=== PATIENT | male | born 1950 | race Caucasian/White ===

== ENCOUNTER 2020-04-29 09:19 | Outpatient (REF) | payer OTHER, SELFPAY ==
[2020-04-29 20:53] LABS: Calculated LDL 124 mg/dL (<100); Cholesterol 190 mg/dL (<200); Glucose 95 mg/dL (74-106); HDL Cholesterol 49 mg/dL (40-60); Triglyceride 85 mg/dL (<150)
== END 2020-04-29 09:39 ==
LOC: NCHCN 09:19
PROVIDERS: PCP Internal Medicine; Visit Provider Nurse Practitioner Family
DX: E78.5 Hyperlipidemia, unspecified (principal)
CPT/HCPCS: 80061; 82947

== ENCOUNTER 2021-06-03 10:21 | Outpatient (REF) | payer MEDICARE, SELFPAY ==
[2021-06-03 20:27] LABS: Hemoglobin A1C 5.4 % (<5.7)
[2021-06-03 20:33] LABS: ALT 35 U/L (16-63); AST 17 U/L (15-37); Alkaline Phosphatase 70 U/L (46-116); Anion Gap 8.3 mmol/L (3-11); BUN 17 mg/dL (7-18); Bilirubin, Total 0.6 mg/dL (0.2-1.0); CO2 26.7 mmol/L (21.0-32.0); Calcium 8.5 mg/dL (8.5-10.1); Calculated LDL 124 mg/dL (<100); Chloride 106 mmol/L (98-107); Cholesterol 194 mg/dL (<200); Glucose 96 mg/dL (74-106); HDL Cholesterol 47 mg/dL (40-60); Potassium 4.1 mmol/L (3.5-5.1); Sodium 141 mmol/L (136-145); Total Protein 6.9 g/dL (6.4-8.2); Triglyceride 116 mg/dL (<150)
== END 2021-06-03 10:22 | disposition home or self-care (01) ==
LOC: NCHCN 10:21
PROVIDERS: PCP Internal Medicine; Visit Provider Nurse Practitioner Family
DX: E78.5 Hyperlipidemia, unspecified (principal); Z68.34 Body mass index [BMI] 34.0-34.9, adult
CPT/HCPCS: 80053; 80061; 83036

== ENCOUNTER 2021-07-01 10:16 | Outpatient (CLI) | payer MEDICARE, SELFPAY ==
--- NOTE | 2021-07-01 10:05 | DI.RAD_ITS ---
Exam(s) XR SHOULDER RT COMPLETE 2+V EXAM: XR SHOULDER RT COMPLETE 2+V CLINICAL HISTORY: right shoulder pain TECHNIQUE: COMPARISON: No exams were available for comparison FINDINGS: Two views were obtained. There is mild narrowing of the cartilaginous joint space of glenohumeral herminio int. There are prominent marginal osteophytes of the glenoid. There are prominent osteophytes at th e acromioclavicular joint and on the inferior aspect of the acromion. Humeral head appears essential ly intact as visualized. IMPRESSION: Hypertrophic degenerative changes of AC joint and glenohumeral joint as described above. Inferior ac romial spurs are noted. RADIATION DOSE DELIVERED: Total DLP
== END 2021-07-01 10:17 | disposition home or self-care (01) ==
LOC: DIORS 10:16
PROVIDERS: PCP Internal Medicine; Referring Provider Internal Medicine; Visit Provider Student in an Organized Health Care Education/Training Program
DX: M25.511 Pain in right shoulder (principal); M19.011 Primary osteoarthritis, right shoulder; M75.51 Bursitis of right shoulder
CPT/HCPCS: 20610; 99204; 73030; J1030

== ENCOUNTER → 2021-08-19 09:10 | Outpatient (BNVA) | payer MEDICARE, SELFPAY | PROVIDERS: PCP Internal Medicine; Referring Provider Internal Medicine; Visit Provider Student in an Organized Health Care Education/Training Program | DX: M75.51 Bursitis of right shoulder (principal); M19.011 Primary osteoarthritis, right shoulder; Z98.890 Other specified postprocedural states | CPT/HCPCS: 99213 ==

== ENCOUNTER → 2021-10-08 07:50 | Outpatient (BNVA) | payer MEDICARE, SELFPAY | PROVIDERS: PCP Internal Medicine; Referring Provider Internal Medicine; Visit Provider Student in an Organized Health Care Education/Training Program | DX: M19.011 Primary osteoarthritis, right shoulder (principal); M75.51 Bursitis of right shoulder; M75.101 Unspecified rotator cuff tear or rupture of right shoulder, not specified as traumatic | CPT/HCPCS: 99213 ==

== ENCOUNTER 2021-11-13 01:46 | Outpatient (CLI) | payer MEDICARE, SELFPAY ==
--- NOTE | 2021-11-13 08:00 | DI.RAD_ITS ---
Exam(s) RF JOINT INJECTION FLUORO GUID EXAM: RF JOINT INJECTION FLUORO GUID CLINICAL HISTORY: R SHOULDER PAIN,primary oa,m19.011,m75.51,fluoro guided injection TECHNIQUE: 2D and realtime digital imaging was performed. COMPARISON: No exams were available for comparison FINDINGS: Fluoroscopy was utilized by Dr. Matos during right shoulder injection. Hard copy shows intra-xena cular injection. IMPRESSION: RADIATION DOSE DELIVERED: mariya Oquendo= 2.55 mGy Total DLP Carlo
--- NOTE | 2021-11-13 13:51 | W.PROCNOTE ---
Procedure Note Date of procedure: 11/13/21 Procedure: Right Shoulder Injection Surgeon/Proceduralist/Physician: Keyur Matos Procedure Diagnosis: Right Glenohumeral Arthritis Procedure Indications: Casey has had persistent pain of the RIGHT shoulder. Noninvasive measures have been tried. To serve as both diagnostic and therapeutic, an injection under fluoroscopy was recommended. Dr. Groves asked me to provide this injection. I had discussed the risks of the procedure and the patient elected to proceed. Procedure Description: Casey was greeted in the flouroscopy room. The correct side was identified and the consent was reviewed with the patient and signed. The patient was then placed in the supine position on the fluoroscopy table. The RIGHT shoulder was then prepped with Chloraprep. The anterior injection starting point was identiifed by bony landmarks and fluoroscopy. The skin and soft tissue in the tract of the injection was anesthetized with 1% Lidocaine. A spinal needle was then inserted deep into the shoulder joint at the level of the recess between the glenoid and superior humeral head. A small amount of Omnipaque solution was injected to confirm intraarticular placement. Once confirmed, the shoulder was injected with 4cc of 0.5% Bupivicaine and 80mg of Depo-Medrol. A bandaid was placed on the injection site. The patient tolerated the procedure well and noted improvement in pre-injection pain.
[2021-11-13] MEDS: Omnipaque 300 MG/ML 10 ML BTL IJ (13:56)
[2021-11-13] MEDS: Bupivacaine 0.5% Pres-Free 10 ML VIAL 5 ML IJ (13:57)
[2021-11-13] MEDS: methylPREDNISolone ACETATE 80 MG/ML VIAL IM (13:58)
== END 2021-11-13 02:06 ==
PROVIDERS: PCP Internal Medicine; Visit Provider Student in an Organized Health Care Education/Training Program
DX: M19.011 Primary osteoarthritis, right shoulder (principal); M75.51 Bursitis of right shoulder; M25.511 Pain in right shoulder
CPT/HCPCS: 20610; 77002; J1040

== ENCOUNTER → 2021-12-31 08:45 | Outpatient (BNVA) | payer MEDICARE, SELFPAY | PROVIDERS: PCP Internal Medicine; Referring Provider Internal Medicine; Visit Provider Student in an Organized Health Care Education/Training Program | DX: M75.101 Unspecified rotator cuff tear or rupture of right shoulder, not specified as traumatic (principal); M19.011 Primary osteoarthritis, right shoulder; M75.51 Bursitis of right shoulder | CPT/HCPCS: 99213 ==

== ENCOUNTER → 2022-04-30 03:04 | Outpatient (CLI) | payer MEDICARE, SELFPAY ==
--- NOTE | 2022-04-30 13:12 | DI.RAD_ITS ---
Exam(s) RF JOINT INJECTION FLUORO GUID EXAM: RF JOINT INJECTION FLUORO GUID CLINICAL HISTORY: RIGHT SHOULDER, OA, BURSITIS, RTC TEAR, M19.011, M75.51, M75.101 TECHNIQUE: 2D and realtime digital imaging was performed. COMPARISON: No exams were available for comparison FINDINGS: Fluoroscopy was utilized by Dr. Groves during right shoulder injection. Hard copy shows needle placem ent over the right shoulder joint. IMPRESSION: RADIATION DOSE DELIVERED: mariya Oquendo= 0.168 mGy Total DLP
[2022-04-30] MEDS: Bupivacaine 0.5% Pres-Free 10 ML VIAL 5 ML IJ (15:18)
[2022-04-30] MEDS: Omnipaque 300 MG/ML 10 ML BTL IJ (15:19)
--- NOTE | 2022-04-30 15:19 | W.PROCNOTE ---
Date of service: 04/30/22 Time of Service: 13:20 Procedure Note Date of procedure: 04/30/22 Procedure: Right Shoulder Injection Surgeon/Proceduralist/Physician: Keyur Matos Procedure Diagnosis: Right Shoulder Arthritis Procedure Indications: Casey has had persistent pain of the RIGHT shoulder. Noninvasive measures have been tried. To serve as both diagnostic and therapeutic, an injection under fluoroscopy was recommended. I had discussed the risks of the procedure and the patient elected to proceed. Procedure Description: Casey was greeted in the flouroscopy room. The correct side was identified and the consent was reviewed with the patient and signed. The patient was then placed in the supine position on the fluoroscopy table. The RIGHT shoulder was then prepped with Chloraprep. The anterior injection starting point was identiifed by bony landmarks and fluoroscopy. The skin and soft tissue in the tract of the injection was anesthetized with 1% Lidocaine. A spinal needle was then inserted deep into the shoulder joint at the level of the recess between the glenoid and superior humeral head. A small amount of Omnipaque solution was injected to confirm intraarticular placement. Once confirmed, the shoulder was injected with 5cc of 0.5% Bupivicaine and 80mg of Depo-Medrol. A bandaid was placed on the injection site. The patient tolerated the procedure well and noted improvement in pre-injection pain.
[2022-04-30] MEDS: methylPREDNISolone ACETATE 80 MG/ML VIAL IM (15:20)
== END ==
PROVIDERS: PCP Internal Medicine; Visit Provider Student in an Organized Health Care Education/Training Program
DX: M19.011 Primary osteoarthritis, right shoulder (principal); M75.101 Unspecified rotator cuff tear or rupture of right shoulder, not specified as traumatic; M75.51 Bursitis of right shoulder
CPT/HCPCS: 20610; 77002; J1040

== ENCOUNTER 2022-06-10 19:14 | Outpatient (REF) | payer MEDICARE, SELFPAY ==
[2022-06-10 21:37] LABS: ALT 43 U/L (16-63); AST 22 U/L (15-37); Albumin 4.1 g/dL (3.4-5.0); Alkaline Phosphatase 80 U/L (46-116); Anion Gap 7.3 mmol/L (3-11); BUN 19 mg/dL (7-18); Bilirubin, Total 0.5 mg/dL (0.2-1.0); CO2 28.7 mmol/L (21.0-32.0); CREATININE 1.2 mg/dL (0.70-1.30); Calcium 8.9 mg/dL (8.5-10.1); Calculated LDL 125 mg/dL (<100); Chloride 104 mmol/L (98-107); Cholesterol 195 mg/dL (<200); Estimated GFR 64.25 (mL/min/1.73m2); Glucose 98 mg/dL (74-106); HDL Cholesterol 50 mg/dL (40-60); Potassium 4.3 mmol/L (3.5-5.1); Sodium 140 mmol/L (136-145); Total Protein 7.5 g/dL (6.4-8.2); Triglyceride 104 mg/dL (<150)
[2022-06-10 22:11] LABS: Hemoglobin A1C 5.4 % (<5.7)
[2022-06-11 19:00] LABS: PSA, Screening 0.8 ng/mL (<=6.5)
== END 2022-06-10 19:15 | disposition home or self-care (01) ==
LOC: NCHCN 19:14
PROVIDERS: PCP Internal Medicine; Visit Provider Nurse Practitioner Family
DX: E78.5 Hyperlipidemia, unspecified (principal); E66.8 Other obesity; Z68.34 Body mass index [BMI] 34.0-34.9, adult; Z12.5 Encounter for screening for malignant neoplasm of prostate; R79.89 Other specified abnormal findings of blood chemistry
CPT/HCPCS: 80053; 80061; 84153; 83036

== ENCOUNTER 2022-11-26 01:12 | Outpatient (CLI) | payer MEDICARE, SELFPAY ==
--- NOTE | 2022-11-26 07:45 | DI.RAD_ITS ---
Exam(s) RF JOINT INJECTION FLUORO GUID EXAM: RF JOINT INJECTION FLUORO GUID CLINICAL HISTORY: RIGHT SHOULDER TEAR,oa rt shoulder, m19.011,m75.51,chronic bursitis. TECHNIQUE: 2D and realtime digital imaging was performed. COMPARISON: No exams were available for comparison FINDINGS: Fluoroscopy was provided for Dr. Matos for guidance with performing a right shoulder injection. Please see procedure note for details. Fluoro time: 4seconds RADIATION DOSE DELIVERED: mariya Oquendo=0.19 mGy
[2022-11-26] MEDS: Bupivacaine 0.5% Pres-Free 10 ML VIAL 5 ML IJ (13:32)
[2022-11-26] MEDS: methylPREDNISolone ACETATE 80 MG/ML VIAL IM (13:32)
--- NOTE | 2022-11-26 13:57 | W.PROCNOTE ---
Date of service: 11/26/22 Time of Service: 13:10 Procedure Note Date of procedure: 11/26/22 Procedure: Right Shoulder Injection Surgeon/Proceduralist/Physician: Keyur Matos Procedure Diagnosis: Right Shoulder Arthritis Procedure Indications: Casey has had persistent pain of the RIGHT shoulder. Noninvasive measures have been tried. To serve as both diagnostic and therapeutic, an injection under fluoroscopy was recommended. I had discussed the risks of the procedure and the patient elected to proceed. Procedure Description: Casey was greeted in the flouroscopy room. The correct side was identified and the consent was reviewed with the patient and signed. The patient was then placed in the supine position on the fluoroscopy table. The RIGHT shoulder was then prepped with Chloraprep. The anterior injection starting point was identiifed by bony landmarks and fluoroscopy. The skin and soft tissue in the tract of the injection was anesthetized with 1% Lidocaine. A spinal needle was then inserted deep into the shoulder joint at the level of the recess between the glenoid and superior humeral head. A small amount of Omnipaque solution was injected to confirm intraarticular placement. Once confirmed, the shoulder was injected with 5cc of 0.5% Bupivicaine and 80mg of Depo-Medrol. A bandaid was placed on the injection site. The patient tolerated the procedure well and noted improvement in pre-injection pain.
== END 2022-11-26 01:32 ==
LOC: DI 01:13
PROVIDERS: PCP Internal Medicine; Visit Provider Student in an Organized Health Care Education/Training Program
DX: M19.011 Primary osteoarthritis, right shoulder (principal); M25.511 Pain in right shoulder; M75.51 Bursitis of right shoulder
CPT/HCPCS: 20610; 77002; J1040

== ENCOUNTER → 2023-03-11 13:47 | Outpatient (BNVA) | payer MEDICARE, SELFPAY | PROVIDERS: PCP Internal Medicine; Referring Provider Internal Medicine; Visit Provider Student in an Organized Health Care Education/Training Program | DX: M19.011 Primary osteoarthritis, right shoulder (principal) | CPT/HCPCS: 20611; J1040 ==

== ENCOUNTER 2023-05-11 09:21 | Outpatient (CLI) | payer MEDICARE, SELFPAY ==
--- NOTE | 2023-05-11 09:15 | DI.RAD_ITS ---
Exam(s) XR SHOULDER RT COMPLETE 2+V EXAM: XR SHOULDER RT COMPLETE 2+V CLINICAL HISTORY: RIGHT SHOULDER PAIN. TECHNIQUE: 2D digital imaging was performed. Three views. COMPARISON: CR XR SHOULDER RT COMPLETE 2+V from 07/01/2021 FINDINGS: BONES: No acute fracture is present. No bony destructive lesion is seen. Prominent spurring at the t ip of the acromion. JOINTS: No dislocation present. Spurring at the AC joint. Glenohumeral joint space is maintained. Spurring at the inferior glenoid. SOFT TISSUE: Normal. IMPRESSION: Prominent spur at the undersurface of the acromion. Degenerative changes of AC joint and glenohumera l joint. DATA REPOSITORY: RADIATION DOSE DELIVERED:
== END 2023-05-11 09:22 | disposition home or self-care (01) ==
LOC: DIORS 09:21
PROVIDERS: PCP Internal Medicine; Referring Provider Internal Medicine; Visit Provider Student in an Organized Health Care Education/Training Program
DX: M19.011 Primary osteoarthritis, right shoulder (principal); M75.101 Unspecified rotator cuff tear or rupture of right shoulder, not specified as traumatic; M75.51 Bursitis of right shoulder
CPT/HCPCS: 99213; 73030

== ENCOUNTER → 2023-06-25 00:15 | Outpatient (CLI) | payer MEDICARE, SELFPAY ==
--- NOTE | 2023-06-25 07:45 | DI.CT_ITS ---
Exam(s) CT UPPER EXTREMITY RT WO EXAM: CT UPPER EXTREMITY RT WO CLINICAL HISTORY: SURGICAL PLANNING,primary oa,rt rotator cuff tear,m75.101,m19.011. TECHNIQUE: Imaging Protocol: Axial computed tomography images with coronal and sagittal reformatted images were created and reviewed. COMPARISON: CR XR SHOULDER RT COMPLETE 2+V from 05/11/2023 FINDINGS: AC joint: Inferior spurring. Prominent spurring at the undersurface of the acromion. Moderate narrowing of the glenohumeral joint. Moderate spurring at the rim of the glenoid. Humeral head appears normally positioned. No muscular atrophy. No gross evidence of full-thickness supraspinatus tendon tear. IMPRESSION: Moderate degenerative changes. RADIATION DOSE DELIVERED: Total DLP Total DLP DATA REPOSITORY: All CT scans at this facility are submitted to the National Radiology Data Registry (NRDR) Dose Index Registry (DIR) with the [employer] ([employer]). RADIATION OPTIMIZATION: All CT scans at this facility use at least one of these dose optimization te chniques: automated exposure control; mA and/or kV adjustment per patient size (includes targeted exa ms where dose is matched to clinical indication); or iterative reconstruction.
== END ==
PROVIDERS: PCP Internal Medicine; Visit Provider Student in an Organized Health Care Education/Training Program
DX: M19.011 Primary osteoarthritis, right shoulder (principal)
CPT/HCPCS: 73200

== ENCOUNTER → 2023-07-13 10:17 | Outpatient (BNVA) | payer MEDICARE, SELFPAY | PROVIDERS: PCP Internal Medicine; Referring Provider Internal Medicine; Visit Provider Student in an Organized Health Care Education/Training Program | DX: M75.101 Unspecified rotator cuff tear or rupture of right shoulder, not specified as traumatic (principal); M19.011 Primary osteoarthritis, right shoulder; M75.21 Bicipital tendinitis, right shoulder | CPT/HCPCS: 99214 ==

== ENCOUNTER 2023-09-30 06:03 | Day surgery (SDC) | payer MEDICARE, SELFPAY ==
[2023-09-30] VITALS (16 sets, daily range): BP systolic 93–162; BP diastolic 58–95; PULSE 62–74; RESP 11–22; TEMP 36.1–37.1; O2SAT 93–98; BMI 33.1
--- NOTE | 2023-09-30 06:26 | W.ANESPRE ---
General Info Date of Service Date Performed: 09/30/23 Height: 5 ft 8 in Weight: 98.9 kg Body Mass Index (BMI): 33.1 Surgical Procedure: Operation Date: 09/30/23 07:40 Proposed Procedure Side Surgeon p Shoulder Reverse Total Arthroplasty, Biceps Tenodesis Right Adal Groves MD Meds Allergies and Home Medications Allergies Allergy/AdvReac Type Severity Reaction Status Date / Time simvastatin Allergy Verified 09/30/23 06:10 doxepin AdvReac Intermediate Verified 09/30/23 06:10 Home Medication Medication Instructions Recorded sildenafil 100 mg tablet (Viagra) 100 mg PO DAILY PRN 07/01/21 aspirin 81 mg tablet,delayed 81 mg PO DAILY Prevent blood clot 09/30/23 release 14 days #14 tabs naproxen 250 mg tablet 250 - 500 mg (1 - 2 x 250 mg) PO 09/30/23 BID PRN Moderate pain #40 tabs oxycodone 5 mg tablet 5 - 10 mg (1 - 2 x 5 mg) PO Q4H 09/30/23 PRN Moderate to severe pain #18 tabs Current Visit Medications: Current Medications Generic Name Dose Route Start Last Admin Trade Name Freq PRN Reason Stop Dose Admin Ringer's Solution 1,000 mls @ 30 mls/hr 09/30/23 06:00 IV 10/29/23 23:59 INFUSION PATRICK Tranexamic Acid 1,000 mg/ 60 mls @ 360 mls/hr 09/30/23 06:00 Sodium Chloride IVPB 09/30/23 16:00 PREOP PATRICK Cefazolin Sodium/Dextrose 2 gm in 50 mls @ 100 mls/hr 09/30/23 06:00 Ancef Duplex IVPB 09/30/23 16:00 PREOP PATRICK IV Miscellaneous Supplies 1 each 09/30/23 06:00 Iv Access IV 10/29/23 23:59 DIRECTED PATRICK Sodium Chloride 0 ml 09/30/23 06:00 Normal Saline Flush 10 Ml Syr IV 10/29/23 23:59 PRN PRN Sodium Chloride 0 ml 09/30/23 06:00 Normal Saline 10 Ml Vial IJ 10/29/23 23:59 DIRECTED PRN Sterile Water 0 ml 09/30/23 06:00 Water,Injection,Sterile 10 Ml Vial IJ 10/29/23 23:59 DIRECTED PRN PFSH Active Problems Active Problems: Problem Status Onset Code Tendonitis of long head of biceps brachii of right shoulder M75.21 Rotator cuff tear, right M75.101 Primary osteoarthritis, right shoulder M19.011 Medical History Medical History Chronic bursitis of right shoulder Surgical History Surgical History Hx of tonsillectomy Tobacco Smoking/Tobacco Use Status: Never Alcohol Alcohol Intake: current Alcohol intake frequency: a few times a week Alcohol type: beer Substance Use Substance use: Never Substance use type: does not use Vital Signs and Lab Results Vital Signs Most Recent Vital Signs in EMR: Most Recent Vital Signs Temp Pulse Resp BP Pulse Ox 36.5 C 63 16 148/84 H 98 09/30/23 06:12 09/30/23 06:12 09/30/23 06:12 09/30/23 06:12 09/30/23 06:12 Lab Results Blood Type / Crossmatch: No Data to Display Complete Blood Count: No Data to Display Complete Metabolic Panel: No Data to Display Liver Function Panel: No Data to Display Coagulation Panel: No Data to Display Cardiac Panel: No Data to Display Arterial Blood Gas: No Data to Display Venous Blood Gas: No Data to Display Pancreas Panel: No Data to Display Thyroid Panel: No Data to Display Infectious Disease: No Data to Display Blood Cultures: No Data to Display Toxicology Panel: No Data to Display Anesthesia Assessment and Plan Anesthesia History Personal History: No History of Anesthesia Complications Family History: No Family History of Anesthesia Complications Exercise Tolerance Exercise Tolerance: Metabolic Equivalents>4 Pertinent Negatives Pertinent Negatives: No Symptoms of GERD, No Major Cardiovascular Symptoms or Complaints, No Major Pulmonary Symptoms or Complaints and No History of CVA/TIA Cardiac & Pulmonary Exam Cardiac Exam: Normal S1/S2 Heart Sounds Pulmonary Exam: Clear Bilateral Breath Sounds Implantable Cardiac Device Does patient have a Pacemaker or an ICD?: No Airway Exam Known Difficult Airway: No Mallampati Class: 3 Mouth Opening: Normal (> 3cm) Thyromental Distance: Greater than 3 cm Neck Range of Motion: Full ROM Neck Circumference: Normal Teeth Condition: Normal Dentition ASA Classification ASA Score: ASA 2 Emergency Case?: No NPO Status NPO Status: NPO Clears >2 hours, Solids >8 hours Anesthesia Plan Resuscitation Status: Full Code Anesthesia Technique: General Anesthesia Airway Planned: Endotracheal Tube Monitors Used: Standard Monitors and SedLine
[2023-09-30] MEDS: Lactated Ringers 1,000 ML 30 ML IV (06:40)
--- NOTE | 2023-09-30 07:11 | W.PM.DSUDISC ---
Date of service: 09/30/23 Time of Service: 14:00 Discharge Plan Disposition Patient Disposition: Home Condition: Stable Discharge Details Attending Provider: Adal Groves Primary Care Provider: Van Palumbo Home Meds and New Rx's Prescriptions: New aspirin 81 mg tablet,delayed release (DR/EC) 81 mg PO DAILY 14 Days Qty: 14 0RF naproxen 250 mg tablet 250 - 500 mg PO BID PRN (Reason: Moderate pain) Qty: 40 0RF oxycodone 5 mg tablet 5 - 10 mg PO Q4H PRN (Reason: Moderate to severe pain) Qty: 18 0RF Continued sildenafil [Viagra] 100 mg tablet 100 mg PO DAILY PRN Rx Instructions: administer 30 minutes to 4 hours before activity Discharge Instructions Additional Instructions: Surgery: Right reverse total shoulder arthroplasty with biceps tenodesis Activity: Do not lift anything heavier than a coffee. You should keep your arm at your side in a neutral position most of the time except for gentle range of motion exercises, physical therapy, and light essential activities. You should use the sling whenever you are out of the house. You may have to adjust the abduction pillow or remove it for comfort. At home it is best to remove the sling and rest the arm on a pillow at your side or support the operative side with your other hand. A physical therapy prescription will be sent electronically to start in about 3 weeks. MODIFIED Reverse TSA Protocol: Immediate AROM OK. Prescriptions: Aspirin 81 mg take 1 daily to prevent a blood clot for 2 weeks Naproxen 250 mg take 1-2 every 12 hours with a meal as needed for moderate pain Oxycodone 5 mg take 1-2 every 4-6 hours as needed for severe pain You may use [id number] Tylenol (acetaminophen) as needed for mild pain. These pain medications may be taken all at once or in different combinations as needed. Also, recommend Colace (docusate) as a stool softener as surgery and pain medicine cause constipation. You may try [id number] diphenhydramine (Benadryl) 25-50 mg nightly as a sleep aid Dressings: Leave dressing in place until follow-up. Keep clean and dry at all times. No showers please. Follow-up: 10-[address] Groves You may take off the leg compression stockings this evening at home. You may also leave them on a few days longer if you have a history of leg swelling or edema. Please call the office during business hours with any questions or concerns. Let us know right away if you develop any redness, drainage, fevers, chest pain, or trouble breathing. Do not drink alcohol or drive for at least 24 hours after anesthesia. Stand Alone Forms: Anesthesia Discharge Inst., Anes.Nerve Block Instructions, Garcia Noyola (DSU) Discharge Orders Discharge Orders: Discharge Order (Routine); Ordered 09/30/23 Ordered By: Lan Posey Discharge Data Discharge Date/Time-TO BE ENTERED AT DEPARTURE: 09/30/23 15:45 DS: Diagnosis Discharge Diagnosis (1) Primary osteoarthritis, right shoulder: Status: Acute
[2023-09-30] MEDS: Celecoxib 200 MG CAP 400 MG PO (07:14)
[2023-09-30] MEDS: Acetaminophen 500 MG TAB 1000 MG PO (07:14)
[2023-09-30] MEDS: Gabapentin 300 MG CAP PO (07:14)
--- NOTE | 2023-09-30 07:15 | ROE_ITS ---
Date of service: 09/30/23 Time of Service: 07:30 Operative Note Operative Note DATE OF PROCEDURE: 09/30/23 PRE-OP DIAGNOSIS: Right: 1. Rotator cuff arthropathy 2. Long head of the biceps tendinopathy POST-OP DIAGNOSIS: same PROCEDURE: Right: 1. Reverse total shoulder arthroplasty, CPT # 91884 2. Open biceps tenodesis, CPT # 60329 The enrichment assistant was medically required as this procedure involves retraction, protection of neurovascular structures, and manipulation of multiple instruments and implants at the same time, which cannot be done without a skilled enrichment assistant. SURGEON: Adal Groves TOWER EQUIPMENT INSTALLER: Lan Posey ANESTHESIA TYPE: Local By Surgeon, General LMA/ETT and Primary Nerve Block Refer to Anesthesia Record ESTIMATED BLOOD LOSS: 50 COMPLICATIONS: None Patient was transported to: PACU Implants: [employer] modular glenoid system baseplate 24 mm +2 Lat [employer] modular glenoid system central post 25 mm [employer] modular glenoid system peripheral locking screws 28 mm inferior, 32 mm superior, 16 mm posterior, 16 mm anterior [employer] modular glenoid system glenosphere 42 +4 mm lateralized [employer] humeral stem 135 degrees size 8 [employer] suture cup size 42 posterior offset [employer] humeral insert size 42 +3 mm Indications: Please see complete medical record for details. Findings: Significant long head biceps tenosynovitis, moderate anterior capsular contracture, high?grade tearing superior rotator cuff, and glenohumeral cartilage loss. Procedure Description: In the operating room, general anesthesia was induced. The patient was positioned beachchair on the operating room table. All bony prominences were well-padded. Preoperative antibiotics were administered. The shoulder was prepped and draped in the usual sterile fashion for shoulder arthroplasty. The correct patient, procedure, and side of the procedure were all verified prior to incision. The deltopectoral approach was preinjected with local anesthetic containing epinephrine and taken to the anterior shoulder. Care was taken to bluntly dissect the interval between the deltoid and pectoralis major muscles and to identify the cephalic vein within its fat stripe. The the vein was mobilized laterally. Subdeltoid space and conjoined tendon were freed of adhesions. The long head of the biceps tendon was identified just lateral to the lesser tuberosity. The uppermost margin of the pectoralis major tendon was released from the proximal humerus. The long head of the biceps tendon was tenodesed in situ using SutureTape in a [id number] fashion securing it superior margin the pectoralis major tendon. The biceps tendon was amputated and followed proximally to identify the rotator interval. A subscapularis peel was done, in order to release and mobilized to full tendon working on bone from superior to inferior. When it became apparent the subscapularis would not mobilize for later repair and was tenotomized through its mid substance. The supraspinatus was debrided as it was significantly thickened and partially torn to about the level of the infraspinatus wrapping around posteriorly. Appropriate coagulation was achieved especially interiorly. The anatomic neck was cut using an oscillating saw with the humeral head bone brought back table in case there was a need for future bone grafting. The proximal humeral protection plate was used to provisionally confirm suture cup and glenosphere size. The proximal humerus was delivered from the wound and maintained in external rotation. Of note the muscular deltoid and pectoralis major limited mobility of the exposure of the proximal humerus and later the glenoid even after adequate releases anteriorly and posteriorly. Reamers were started appropriately posterior to the bicipital groove taking care to maintain in line approach with the humeral canal. Sequential reaming was done from size 5 up to size 9. Next, the broaches were sequentially used to open the proximal humerus starting with a size 5 and going up to size 9 and sunk to the appropriate depth while maintaining approximately 25 degrees retroversion. There was good metaphyseal f it and rotational control of the proximal humerus with this size. The posterior offset guide was used to ream for the suture cup. Attention was then turned to the glenoid and retractors were placed and a circumferential release performed using the long head of the biceps remnant to remove soft tissue about the glenoid rim. Care was taken inferiorly to work on bone only between 5 and 7:00 o'clock and bluntly elevate tissues inferiorly although a large inferior prominence as noted in the CT had to be identified for adequate glenosphere placement. The VIP guide was too large really for the exposure, and anatomy looked better for the regular baseplate and then the eccentric augmented, the guidepin was then placed through the guide with the VIP use to confirm placement and trajectory of the central guidepin. The guidepin was inserted and advanced just through the far cortex ensuring adequate central fixation length. Depth gauge was used to confirm length. The glenosphere sizer was used to confirm positioning and glenosphere size. The backside of the baseplate reamer and underside of glenosphere reamers were then used. There was appropriate eccentric reaming inferiorly. The 25 mm central post drill was used. The baseplate was impacted, but did not fully compressed or have good fixation strength onto the glenoid surface with some interposed cartilage. It was removed this tissue removed, and then impacted again and fully compressed onto the glenoid surface with much better purchase. The locking guide was then used to drill initial inferior screw, nonlocking compression chosen to best secure the baseplate to the glenoid surface and ensure maintenance of inferior tilt and then drill through the locking guide and place appropriately lenghthed superior, anterior, and posterior screws. The inferior screw nonlocking was then replaced with a locking screw. The [id number]-[id number] reamer was used to confirm adequate peripheral reaming. The glenosphere was applied with the fabrication and layout craftsman and then impacted to engage the Castro taper. It was then locked with appropriate countersinking of the setscrew. The glenosphere was inspected and found to have good fit, appropriate positioning, and no soft tissue or bony impingement. Attention was then turned back to rhe humeral trial cup was connected. Trialing was commenced with +3 mm liner. The shoulder was reduced and taken through range of motion with this construct showing excellent stability and appropriate tension on the deltoid and conjoined tension. The trial components were removed from the proximal humerus. The wound was copiously irrigated with normal saline. The the proximal humeral stem and suture cup were assembled and brought over the proximal humerus. A small amount of vancomycin powder was distributed in the proximal humerus. The humeral component and suture cup were impacted into place. It sat at the same location of the trial. The final +3 mm liner was then connected and impacted. The final implants were reduced and range of motion, stability, and tension confirmed to be appropriate. The shoulder was copiously irrigated with Irrisept and normal saline. Vancomycin powder was distributed deeply about the shoulder and through subcutaneous tissues. T the deltopectoral interval was reapproximated using 2-0 Monocryl buried in the cephalic vein. Subcutaneous tissue was irrigated then closed using 2-0 Monocryl in a buried interrupted fashion. Skin was closed using 3-0 Monocryl in a buried subcuticular fashion. Skin glue was applied to the incision. A silver impregnated bandage was placed over the incision. The extremity was placed into a shoulder immobilizer.
[2023-09-30] MEDS: ceFAZolin 2 GM/50 ML BAG IVPB (07:34)
[2023-09-30] MEDS: Bupivacaine 0.25% Pres-Free 30 ML VIAL (08:37)
[2023-09-30] MEDS: EPINEPHrine 1 MG/ML AMP pres-free (08:38)
--- NOTE | 2023-09-30 08:44 | W.ANESNERVE ---
Nerve Block Single Injection Procedure Date and Time Date Performed: 09/30/23 Procedure Start: 07:17 Location Where Procedure Performed Procedure Location: Day Surgery Unit Reason Performed: Postoperative Analgesia Requesting Provider: Adal Groves Timeout Performed Timeout Performed: Yes Monitoring Used ECG, Blood Pressure and SpO2 Sterility Sterility: Hand Hygiene, Surgical Cap, Surgical Mask, Sterile Gloves and Chlorhexidine Sedation Given During Procedure Sedation Given (Indicate Dose Given): Versed IV Dose:: 2mg Patient Mental Status Patient Mental Status: Sedate with meaningful communication Nerve Block 1st Nerve Block: Laterality: Right Block Type: Interscalene Ultrasound Image Saved?: Yes Needle / Catheter Used: 100mm SonoPlex II Local Anesthetic Bolus (Indicate Dose Given): Lidocaine used for local infiltration of skin, Injected in 3-5ml increments after negative blood aspiration, Bupivacaine 0.5% Dose:: 10mL and Exparel Dose:: 10 ml Additives (Indicate Dose Given): None Ultrasound: Sterile probe cover and gel used Nerve Stimulator: Supplement to Ultrasound use Paresthesia: None Procedure Tolerated: No Complications and Patient tolerated well Procedure Outcome: Successful Performed By: Sylvia Foy Supervised By: Dagmar Valverde
--- NOTE | 2023-09-30 11:00 | DI.RAD_ITS ---
Exam(s) XR SHOULDER RT COMPLETE 2+V EXAM: XR SHOULDER RT COMPLETE 2+V CLINICAL HISTORY: Shoulder Arthritis. TECHNIQUE: 2D digital imaging was performed. COMPARISON: CR XR SHOULDER RT COMPLETE 2+V from 05/11/2023 FINDINGS: Two views. There is satisfactory position and alignment of the components of the newly placed reverse prosthesis . No fracture or loosening evident. IMPRESSION: Satisfactory postop appearance. DATA REPOSITORY: RADIATION DOSE DELIVERED:
[2023-09-30] MEDS: ceFAZolin 1 GM/50 ML BAG IVPB (11:31)
--- NOTE | 2023-09-30 15:37 | W.ANESPOSTOP ---
Postoperative Evaluation Date, Time and Location Date Performed: 09/30/23 Time Performed: 13:20 Patient Location: PACU Vital Signs Most Recent Imported Vital Signs: Most Recent Vital Signs Temp Pulse Resp BP Pulse Ox 36.5 C 64 16 117/72 94 09/30/23 14:13 09/30/23 14:13 09/30/23 14:13 09/30/23 14:13 09/30/23 14:13 Pain Score Most Recent Pain Score: Most Recent Pain Score Pain Level 0 09/30/23 14:13 Assessment Mental Status: Awake (Alert & Oriented to Patient Baseline) Airway and Respiratory Function: Patent airway with normal (patient baseline) respiratory exam Cardiovascular Function: Hemodynamically Stable Hydration Status: Adequately Hydrated Nausea & Vomiting: No Nausea or Vomiting Pain: Pt. Denies Any Pain Peripheral Nerve Block: Regional nerve block not resolved at time of post operative discharge
== END 2023-09-30 15:45 | disposition home or self-care (01) ==
PROVIDERS: PCP Internal Medicine; Visit Provider Student in an Organized Health Care Education/Training Program
PROC: (CPT 23472; principal; 2023-09-30 07:30)
DX: M19.011 Primary osteoarthritis, right shoulder (principal)
CPT/HCPCS: 23472; 23430; C1713; 76942; 73030; C9290; J0171; J0665; J0690; J1100; J2001; J2250; J2371; J2405; J2704; J3370

== ENCOUNTER 2023-10-13 15:37 | Outpatient (CLI) | payer MEDICARE, SELFPAY ==
--- NOTE | 2023-10-13 15:56 | DI.RAD_ITS ---
Exam(s) XR SHOULDER RT COMPLETE 2+V EXAM: XR SHOULDER RT COMPLETE 2+V INDICATION: F/U RIGHT RTSA. COMPARISON: CR XR SHOULDER RT COMPLETE 2+V from 09/30/2023 TECHNIQUE: 2D digital imaging was performed. Two views. FINDINGS: There has been no change in the alignment of the reverse shoulder prosthesis. No abnormal bony lucen cies are seen. There is some residual postsurgical air in the soft tissues. DATA REPOSITORY: RADIATION DOSE DELIVERED:
== END 2023-10-13 15:38 | disposition home or self-care (01) ==
LOC: DIORS 15:37
PROVIDERS: PCP Internal Medicine; Visit Provider Student in an Organized Health Care Education/Training Program
DX: Z96.611 Presence of right artificial shoulder joint (principal); Z47.1 Aftercare following joint replacement surgery
CPT/HCPCS: 73030

== ENCOUNTER → 2023-12-01 13:36 | Outpatient (BNVA) | payer MEDICARE, SELFPAY | PROVIDERS: PCP Nurse Practitioner Family; Visit Provider Student in an Organized Health Care Education/Training Program | DX: Z47.1 Aftercare following joint replacement surgery (principal); Z96.611 Presence of right artificial shoulder joint ==

== ENCOUNTER → 2024-01-26 13:11 | Outpatient (BNVA) | payer MEDICARE, SELFPAY | PROVIDERS: PCP Nurse Practitioner Family; Referring Provider Nurse Practitioner Family; Visit Provider Student in an Organized Health Care Education/Training Program | DX: Z47.1 Aftercare following joint replacement surgery (principal); Z96.611 Presence of right artificial shoulder joint | CPT/HCPCS: 99213 ==

== ENCOUNTER 2024-02-29 11:18 | Outpatient (REF) | payer MEDICARE, SELFPAY ==
[2024-02-29 18:47] LABS: ESR 5 mm/hr (0-20)
[2024-02-29 18:48] LABS: HCT 47.6 % (40.0-50.0); HGB 15.6 g/dL (13.5-17.5); MCH 28.9 pg (27.0-33.0); MCHC 32.8 % (32.0-36.0); MCV 88 fL (80-95); Platelet Count 202 10^3/uL (130-400); RBC 5.39 10^6/uL (4.36-5.78); RDW 13.9 % (11.8-14.1); RDW-SD 44.9 fL; WBC 5.13 10^3/uL (4.4-10.8)
[2024-02-29 19:10] LABS: TSH 1.63 uIU/Ml (0.36-3.74)
[2024-03-02 10:06] LABS: Lyme Ab w Rflx to Lyme Confirm Negative (Negative)
[2024-03-03 21:58] LABS: Anaplasma phagocytophilum Negative (Negative); B. miyamotoi PCR Negative (Negative); Babesia divergens/MO-1 Negative (Negative); Babesia duncani Negative (Negative); Babesia microti Negative (Negative); Ehrlichia chaffeensis Negative (Negative); Ehrlichia ewingii/canis Negative (Negative); Ehrlichia muris eauclairensis Negative (Negative)
== END 2024-02-29 11:19 | disposition home or self-care (01) ==
LOC: NCHCN 11:18
PROVIDERS: PCP Nurse Practitioner Family; Visit Provider Nurse Practitioner Family
DX: R53.83 Other fatigue (principal); M25.50 Pain in unspecified joint; Z11.8 Encounter for screening for other infectious and parasitic diseases
CPT/HCPCS: 85027; 85652; 87798; 84443; 86618

== ENCOUNTER 2024-08-10 08:24 | Outpatient (REF) | payer MEDICARE, SELFPAY ==
[2024-08-10 20:30] LABS: ALT 38 U/L (16-63); AST 22 U/L (15-37); Albumin 3.9 g/dL (3.4-5.0); Alkaline Phosphatase 80 U/L (46-116); BUN 16 mg/dL (7-18); Bilirubin, Total 0.63 mg/dL (0.2-1.0); CREATININE 1.3 mg/dL (0.70-1.30); Calcium 8.8 mg/dL (8.5-10.1); Calculated LDL 123 mg/dL (<100); Chloride 107 mmol/L (98-107); Cholesterol 192 mg/dL (<200); Estimated GFR 57.65 (mL/min/1.73m2); Glucose 97 mg/dL (74-106); HDL Cholesterol 51 mg/dL (40-60); Potassium 4.4 mmol/L (3.5-5.1); Sodium 144 mmol/L (136-145); Total Protein 7.2 g/dL (6.4-8.2); Triglyceride 91 mg/dL (<150)
== END 2024-08-10 08:25 | disposition home or self-care (01) ==
LOC: NCHCN 08:24
PROVIDERS: PCP Nurse Practitioner Family; Visit Provider Nurse Practitioner Family
DX: E78.5 Hyperlipidemia, unspecified (principal)
CPT/HCPCS: 80053; 80061

== ENCOUNTER 2024-10-18 13:00 | Outpatient (CLI) | payer MEDICARE, SELFPAY ==
--- NOTE | 2024-10-18 13:00 | DI.RAD_ITS ---
Exam(s) XR SHOULDER RT COMPLETE 2+V EXAM: XR SHOULDER RT COMPLETE 2+V CLINICAL HISTORY: F/U RIGHT RTSA. TECHNIQUE: 2D digital imaging was performed. Three images were obtained. Axillary, Grashey and Y vi ews were obtained. COMPARISON: CR XR SHOULDER RT COMPLETE 2+V from 10/13/2023 FINDINGS: BONES: There are stable post operative changes of a right reverse total shoulder arthroplasty present . No fracture or dislocation. JOINTS: The orthopedic hardware is in good position. No evidence of hardware loosening. Degenerativ e changes are seen at the acromioclavicular joint. SOFT TISSUE: Normal. IMPRESSION: Stable right reverse total shoulder arthroplasty.. DATA REPOSITORY: RADIATION DOSE DELIVERED:
== END 2024-10-18 13:01 | disposition home or self-care (01) ==
LOC: DIORS 10-19 15:38
PROVIDERS: PCP Nurse Practitioner Family; Referring Provider Nurse Practitioner Family; Visit Provider Physician Assistant
DX: Z47.1 Aftercare following joint replacement surgery (principal); Z96.611 Presence of right artificial shoulder joint
CPT/HCPCS: 99213; 73030

== ENCOUNTER 2025-01-23 10:41 | Outpatient (CLI) | payer MEDICARE, SELFPAY ==
--- NOTE | 2025-01-23 14:35 | DI.RAD_ITS ---
Exam(s) XR KNEE LT 3V AP,LAT,CHARO EXAM: XR KNEE LT 3V AP,LAT,CHARO CLINICAL HISTORY: ACUTE PAIN LT KNEE, M25.562. TECHNIQUE: 2D digital imaging was performed. Three views. COMPARISON: No exams were available for comparison FINDINGS: BONES: No acute fracture is present. No bony destructive lesion is seen. Enthesophyte at quadricep s insertion on patella. Small enthesophyte at tibial tubercle. There is an exostosis at the posteri or aspect of the proximal tibia. JOINTS: The knee is normally aligned. No joint effusion is seen. The joint spaces are maintained. SOFT TISSUE: Venous varicosities. IMPRESSION: No acute abnormality. DATA REPOSITORY: RADIATION DOSE DELIVERED:
== END 2025-01-23 11:01 ==
LOC: DI 10:41
PROVIDERS: PCP Nurse Practitioner Family; Visit Provider Nurse Practitioner Family
DX: M25.562 Pain in left knee (principal)
CPT/HCPCS: 73562

== ENCOUNTER → 2025-02-14 09:26 | Outpatient (BNVA) | payer MEDICARE, SELFPAY | PROVIDERS: PCP Nurse Practitioner Family; Referring Provider Nurse Practitioner Family; Visit Provider Student in an Organized Health Care Education/Training Program | DX: S86.812A Strain of other muscle(s) and tendon(s) at lower leg level, left leg, initial encounter (principal); X58.XXXA Exposure to other specified factors, initial encounter | CPT/HCPCS: 99213 ==

== ENCOUNTER 2025-07-24 10:26 | Outpatient (REF) | payer MEDICARE, SELFPAY ==
[2025-07-24 18:51] LABS: HCT 48.3 % (40.0-50.0); HGB 15.9 g/dL (13.5-17.5); MCH 29.5 pg (27.0-33.0); MCHC 32.9 % (32.0-36.0); MCV 90 fL (80-95); MPV 10.7 fL (8.0-11.0); Platelet Count 216 10^3/uL (130-400); RBC 5.39 10^6/uL (4.36-5.78); RDW 13.2 % (11.8-14.1); RDW-SD 43.8 fL; WBC 6.15 10^3/uL (4.4-10.8)
[2025-07-24 19:05] LABS: ALT 31 U/L (10-49); AST 22 U/L (<34); Albumin 4.5 g/dL (3.2-5.0); Alkaline Phosphatase 79 U/L (46-116); Anion Gap 6.6 mmol/L (3-11); BUN 15 mg/dL (9-23); Bilirubin, Total 0.70 mg/dL (0.2-1.2); CO2 27.4 mmol/L (20.0-31.0); Calcium 9.4 mg/dL (8.3-10.6); Chloride 107 mmol/L (98-107); Cholesterol 176 mg/dL (<200); Glucose 98 mg/dL (74-106); HDL Cholesterol 43 mg/dL (>40); Potassium 4.5 mmol/L (3.5-5.1); Sodium 141 mmol/L (136-145); Total Protein 7.2 g/dL (5.7-8.2)
== END 2025-07-24 10:27 | disposition home or self-care (01) ==
LOC: NCHCN 10:26
PROVIDERS: PCP Nurse Practitioner Family; Visit Provider Nurse Practitioner Family
DX: Z00.00 Encounter for general adult medical examination without abnormal findings (principal)
CPT/HCPCS: 80053; 80061; 85027

== ENCOUNTER 2025-07-25 15:44 | Outpatient (REF) | payer MEDICARE, SELFPAY ==
[2025-07-25 18:51] LABS: RBC 0-2 HPF (0-2); WBC Negative HPF (0-5)
[2025-07-25 18:54] LABS: C & S Indicated? No
== END 2025-07-25 15:45 | disposition home or self-care (01) ==
LOC: NCHCN 15:44
PROVIDERS: PCP Nurse Practitioner Family; Visit Provider Nurse Practitioner Family
DX: Z00.00 Encounter for general adult medical examination without abnormal findings (principal)
CPT/HCPCS: 81015